=== PATIENT | female | born 1980 | race Caucasian/White ===

== ENCOUNTER → 2020-05-20 | Day surgery (SDC) | payer OTHER ==
[~2020-05-20] MED LIST: ALDACTONE50 MG PO; ELIQUIS5 MG PO; FEOSOL325 MG PO; GLUCOPHAGE850 MG PO; LIPITOR40 MG PO; LOVENOX150 MG/1 M IJ; PRINIVIL10 MG PO; VITAMIN B-121000 MC1 PO; VITAMIN D PO; XARELTO15 MG PO; ZOLOFT50 MG PO
[2020-05-20 07:55] LABS: HCG (URINE) SCREEN NEGATIVE (NEGATIVE)
[2020-05-20 08:41] LABS: BUN/CREAT RATIO (CALC) 9.8 RATIO; CREATININE 0.82 mg/dL (0.51-0.95)
[2020-05-20 08:47] LABS: INR 1.05 (0.9-1.2)
== END | disposition home or self-care (01) ==
LOC: FAS 07:06
PROVIDERS: Anesthesiology
DX: K52.9 Noninfective gastroenteritis and colitis, unspecified (principal); K64.4 Residual hemorrhoidal skin tags; D64.9 Anemia, unspecified; J30.9 Allergic rhinitis, unspecified; F41.8 Other specified anxiety disorders; E11.9 Type 2 diabetes mellitus without complications; E78.5 Hyperlipidemia, unspecified; E53.8 Deficiency of other specified B group vitamins; E55.9 Vitamin D deficiency, unspecified; Z91.040 Latex allergy status; Z79.899 Other long term (current) drug therapy; Z82.49 Family history of ischemic heart disease and other diseases of the circulatory system; Z82.3 Family history of stroke
CPT/HCPCS: 36415; 80048; 84703; 85610; 85730; J0694; J1100; J1885; J2250; J2405; J2704; J3010; J7120